=== PATIENT | male | born 1995 | race Caucasian/White ===

== ENCOUNTER 2021-03-13 18:13 | Emergency (ER) | payer SELFPAY ==
[2021-03-13 18:13] VITALS: BP 139/83; PULSE 106; RESP 16; TEMP 37.9; O2SAT 98; BMI 36.2
--- NOTE | 2021-03-13 22:26 | EX.ED.DYSGE1 ---
HPI History of Present Illness Chief Complaint: General Illness Informant: patient Narrative Narrative: Patient diagnosed Covid 7 days ago symptomatic 8 days ago. Generalized fatigue nausea chills. Progressed with cough diarrhea loss of taste and smell. Continued nausea and fevers. Last Tylenol around 1 PM. He has vomited however is tolerating oral intake. He states 5-6 loose stools a day. Nonbloody. History of childhood asthma. He has a home pulse ox reports been 97-98%. Denies any respiratory distress. He has been home from work due to symptoms. No vaccinations in the past. First Covid infection. Prior similar symptoms: No PFSH PFSH Medical History Bicuspid aortic valve Paroxysmal SVT (supraventricular tachycardia) Home Medications amoxicillin 500 mg tablet 500 mg PO .COMPLEX tab 11/19/17 [History Last Taken Unknown] ondansetron 4 mg PO Q6H PRN #10 tab 03/13/21 [Rx Last Taken Unknown] Allergy/AdvReac Type Severity Reaction Status Date / Time No Known Allergies Allergy Verified 03/13/21 18:16 Family History Grandmother Hypertension Grandfather CAD (coronary artery disease) Hx of CABG Surgical History History of cardiac radiofrequency ablation (~11/2014) History of tonsillectomy and adenoidectomy Social History Smoking Status: Never smoker alcohol intake: never substance use type: does not use ROS ROS ED Constitutional Constitutional ED: Reports chills and fever(s); Denies sweats Eyes Eyes: Denies change in vision ENT ENT ED: Denies dysphagia or sore throat Cardiovascular Cardiovascular: Denies chest pain, leg edema, palpitations or racing heartbeat Respiratory/Chest Respiratory/Chest: Reports cough; Denies dyspnea or dyspnea on exertion Gastrointestinal Gastrointestinal: Reports diarrhea and nausea; Denies abdominal pain or vomiting Genitourinary Genitourinary ED: Denies dysuria, hematuria or urinary frequency Musculoskeletal Musculoskeletal: Denies back pain, extremity pain or neck pain Integumentary Denies rash or wounds Neurologic Neurologic: Reports headache(s); Denies paresthesias or weakness EXAM Physical Exam Const Vital Signs: 03/13/21 18:13 03/13/21 22:35 03/13/21 22:41 Temperature 100.2 F H Temperature Source Temporal Pulse Rate 106 H 110 H Respiratory Rate 16 Respiratory Effort Normal Non-Labored Respiratory Pattern Normal Blood Pressure 139/83 H Blood Pressure Mean 101 Pulse Ox 98 96 Oxygen Delivery Method Room Air Positive well nourished and well developed Constitutional Narrative: Nontoxic. General Appearance ED: well developed and NAD HEENT Reports moist mucous membranes normocephalic and atraumatic Eyes PERRL, EOMs intact bilaterally and conjunctivae normal General Eye ED: Yes normal appearance of both eyes Neck no lymphadenopathy and supple Neck Narrative: No meningismus General: Negative for tenderness Chest Wall Chest: Negative for tenderness Resp normal respiratory effort and normal air movement Effort and Inspection: symmetric chest movement; Negative for respiratory distress Cardio regular rate, regular rhythm and no murmurs Peripheral Pulses: pulses 2+ throughout GI normal to inspection, nondistended, normoactive bowel sounds and non-tender Palpation: Negative for guarding or rebound tenderness present Back/Spine no CVA tenderness and no thoracic nor lumbar tenderness Extremity normal to inspection General Extremety ED: Negative for edema or tenderness General Extremity: Negative for edema Neuro oriented x3 and no sensory deficits noted Sensorium / Orientation: awake and alert Skin no rashes or lesions noted and no wounds MDM MDM MDM Narrative Medical decision making narrative: Patient elevated temp 100.2 on arrival. Nontoxic. No meningismus. He is tolerating oral intake currently more complaining of nausea. Is given Zofran and Motrin. Pulse ox 98%. Continue to monitor his oxygen levels. Signs and symptom discussed return. Discussed symptomatic treatment. Prescription of Zofran sent to his pharmacy. All questions were answered. Patient is being discharged under pandemic conditions under declared global, national and state disaster activation, with limited medical resources. Patient and community understands this. Results discussed in layman's terms to the patient satisfaction. All questions answered in layman's terms. Patient understands importance of follow-up care as directed. Patient has been instructed to return to the ED immediately if new symptoms, problems, or questions occur. We mutually agree with the plan of disposition. The patient understand that they may call or return with any questions or concerns at any time. Discharge Plan Triage Chief Complaint: General Illness ED Provider: Junaid Downs Dx/Rx/DC Orders Clinical Impression: COVID-19 virus infection, Nausea & vomiting, Diarrhea, Upper respiratory infection, viral Instructions: Coronavirus Disease 2019 (COVID-19): Caring for Yourself or Others, ED Diet for Vomiting or ... Prescriptions: New ondansetron 4 mg tablet,disintegrating 4 mg PO Q6H PRN (Reason: nausea and vomiting) Qty: 10 RF: 0 No Action amoxicillin 500 mg tablet 500 mg PO .COMPLEX RF: 0 Primary Care Provider: Bull Green Referrals: Bull Green MD [Primary Care Provider] - 1 Week Disposition Disposition: Home, Self Care
[2021-03-13 22:41] VITALS: PULSE 110; O2SAT 96
[2021-03-13] MEDS: Ondansetron ODT 4 MG Tablet 8 MG PO (22:41)
[2021-03-13] MEDS: Ibuprofen 600 MG Tablet PO (22:41)
== END 2021-03-13 22:48 | disposition home or self-care (01) ==
LOC: ED 22:47
PROVIDERS: Emergency Provider Emergency Medicine
DX: U07.1 COVID-19 (principal); R11.2 Nausea with vomiting, unspecified; R19.7 Diarrhea, unspecified; J06.9 Acute upper respiratory infection, unspecified
CPT/HCPCS: 99283